=== PATIENT | male | born 1940 | race Caucasian/White ===

== ENCOUNTER 2021-01-26 00:39 | Inpatient (IN) | payer MEDICARE, OTHER, SELFPAY ==
[2021-01-26] VITALS (14 sets, daily range): BP systolic 119–144; BP diastolic 64–85; PULSE 79–101; RESP 18–24; TEMP 36.3–37.1; O2SAT 92–98; BMI 20.7
--- NOTE | 2021-01-26 00:52 | PCM.HP.STD ---
Documented by User: JASON Dominguez 01/26/21 01:14 HPI - General General Date of Admission: 01/26/21 Date of Service: 01/26/21 Chief Complaint: SOB, PE HPI Narrative CHARISMA RODRIGUEZ, is a 80 M who presents from [facility] with complaints of shortness of breath. Patient presented to the freestanding ER with complaints of shortness of breath and leg swelling left greater than right however the main campus did not have any beds available so patient was transferred to [facility]. Patient D-dimer from previous facility was 2420 and CTA results showed pulmonary arterial hypertension and COPD along with acute thromboembolic disease involving the right lower lobe lobar, left lower lobe lobar and segmental pulmonary arteries. There is also a small clot suspected in the right middle lobe pulmonary artery. Patient was tested for Covid and alkaline which came back negative CMP unremarkable, lactate 2.4. CBC noted to have elevated white blood cell count 11.81 as well as RBC 6.53 and hemoglobin 18.5 with hematocrit 57.5 and platelet 262. Patient currently reports that his left leg swelling and pain has decreased after the initiation of heparin. Patient continues to complain of shortness of breath and is currently on oxygen. [facility] Medical History (Updated 01/26/21 @ 01:04 by JASON Dominguez) COPD (chronic obstructive pulmonary disease) Home Medications albuterol sulfate 1 puff INHALATION Q4H PRN PRN 01/26/21 [History Last Taken Unknown] furosemide [Lasix] 20 mg PO DAILY 01/26/21 [History Last Taken Unknown] Allergy/AdvReac Type Severity Reaction Status Date / Time No Known Allergies Allergy Verified 01/26/21 01:01 Social History Smoking Status: Former smoker ROS Constitutional Constitutional: Denies anorexia, chills, fatigue, fever(s) or weakness Cardiovascular Cardiovascular: Reports edema; Denies chest pain or palpitations Respiratory/Chest Respiratory/Chest: Reports shortness of breath at rest and shortness of breath with exertion; Denies cough or hemoptysis Gastrointestinal Gastrointestinal: Denies abdominal pain, constipation, diarrhea, nausea or vomiting Genitourinary Genitourinary: Denies dysuria Musculoskeletal Musculoskeletal: Denies back pain, extremity pain, joint pain or joint stiffness Integumentary Integumentary: Denies dry skin Neurologic Neurologic: Denies abnormal gait, abnormal speech, confusion or dizziness Psychiatric Psychiatric: Denies anxiety or depression Endocrine Endocrinology: Denies change in body appearance Hematologic/Lymphatic Hematologic/Lymphatic: Denies easy bleeding or easy bruising Vital Signs Vital Signs Vital Signs: 01/26/21 00:20 Temperature 97.5 F L Temperature Source Oral Pulse Rate 90 Respiratory Rate 18 Blood Pressure 144/85 H Blood Pressure Mean 104 Blood Pressure Source Monitor Blood Pressure Position Semi-Fowlers Blood Pressure Location Right Arm Pulse Ox 95 Oxygen Delivery Method Nasal Cannula Oxygen Flow Rate (L/min) 2.5 Weight Weight: 132 lb 7.965 oz Body Mass Index (BMI) 20.7 Physical Exam Const alert, oriented x3 and no apparent distress General Appearance: cooperative HEENT normocephalic and head/scalp atraumatic Eyes conjunctivae normal and no scleral icterus Neck no lymphadenopathy, supple and no JVD General: trachea midline Resp normal respiratory effort and normal air movement Auscultation: wheezes left lower, right lower and anterior Cardio regular rate, regular rhythm, S1 normal heart sound, S2 normal heart sound and peripheral pulses 2+ throughout GI normal to inspection, nondistended, normoactive bowel sounds, soft to palpation and non-tender Extremity normal capillary refill and no clubbing, cyanosis or edema General Extremity: calf tenderness and edema bilateral (Left worse than right) lower extremity Details: moderate Skin General Skin Exam: no breakdown and turgor normal Lesions: no lesions Rashes: no rashes Neuro oriented x3, moves all extremities, no focal motor deficits and no sensory deficits noted Psych thought process normal, cooperative and affect normal Appearance: appropriate Results Lab / Micro Data Result Diagrams: 01/26/21 01:20 Assessment & Plan Assessment/Plan (1) Pulmonary embolism: QUALIFIERS: Acute cor pulmonale presence: without acute cor pulmonale Chronicity: acute Pulmonary embolism type: unspecified Qualified Code(s): I26.99 - Other pulmonary embolism without acute cor pulmonale PLAN: 1. Pulmonary embolism -Admit to PCU for cardiac monitoring -Heparin drip ordered per protocol, no bolus ordered due to patient being bolused at [facility] prior to arrival. Will obtain PTT and platelet count prior to re-initiation -Venous duplex of the bilateral lower extremities ordered for a.m. -Incentive spirometry encouraged a cancer can talk tonight -Echocardiogram ordered for a.m. -PT and OT to evaluate and treat -Consult pulmonary medicine -Vital signs per protocol -CBC and BMP in a.m. -Oxygen per protocol, currently on 2.5 L nasal cannula -Elevate lower extremities while in bed or in chair -Case management consulted for discharge planning, possible need for O2 on discharge 2. COPD -As needed albuterol nebulizer treatments ordered 3. CHF -Due to increased edema will order bilateral Murray wraps -Lasix 20 mg IV twice daily ordered -Strict intake and output along with daily weights ordered DVT prophylaxis-patient on heparin drip This patient was seen by JON DominguezC under the supervision of Dr. Dubois. Documented by User: Dr. Antwan Dubois MD 01/26/21 05:34 HPI - General General Date of Admission: 01/26/21 [facility] Medical History (Updated 01/26/21 @ 01:04 by Apple Vanegas NP-C) COPD (chronic obstructive pulmonary disease) Home Medications albuterol sulfate 1 puff INHALATION Q4H PRN PRN 01/26/21 [History Last Taken Unknown] furosemide [Lasix] 20 mg PO DAILY 01/26/21 [History Last Taken Unknown] Allergy/AdvReac Type Severity Reaction Status Date / Time No Known Allergies Allergy Verified 01/26/21 01:01 Social History Smoking Status: Former smoker Results Lab / Micro Data Result Diagrams: 01/26/21 01:20 Charges/Coding Addendum Addendum: Patient seen and evaluated independently by myself and agree with above assessment and plan
[2021-01-26 01:27] LABS: Platelet Count 239 K/mm3 (150-450)
[2021-01-26 01:39] LABS: Partial Thromboplast Time 126.3 Seconds (24.1-36.2)
[2021-01-26] MEDS: 0.9% Saline Lock 10 ML Syringe IV (03:19)
[2021-01-26] MEDS: HEPARIN/D5w 25,000 UNITS 25,000 UNITS/250 ML IV.SOLN. 5 UNITS IV (03:20)
[2021-01-26 05:04] LABS: Troponin-I HS 382.1 pg/mL (3.0-78.5)
--- NOTE | 2021-01-26 05:55 | ECHOD_ITS ---
Reason For Study: EMBOLI Procedure This was a 2D Doppler, Color Flow transthoracic echocardiogram. The study was technically difficult. Exam performed with PT sitting upright due to SOB. Exam performed portable in patient room. Left Ventricle Normal LV size. D shaped septum in systole and diastole. Left ventricular systolic function is normal. The estimated ejection fraction is 65 %. Diastolic function is indeterminate. No regional wall motion abnormalities noted. Right Ventricle Severely dilated right ventricle. A calcified moderator band is seen in the right ventricle. Moderate global right ventricular systolic dysfunction. Atria Normal left atrium. Normal right atrium. No doppler evidence for ASD. Mitral Valve There is no mitral annular calcification. Normal mitral valve. Trivial mitral valve insufficiency. Tricuspid Valve Normal tricuspid valve. Mild tricuspid valve insufficiency. Right ventricular systolic pressure estimated to be 50 mmHg. Aortic Valve Trisinus/trileaflet aortic valve. Mild focal aortic valve calcification. Trivial aortic valve insufficiency. Pulmonic Valve The pulmonic valve is not well visualized. Moderate (2+) pulmonic valve insufficiency. Great Vessels Normal sized aortic root. Pericardium/Pleural No pericardial effusion. MMode/2D Measurements & Calculations LVIDd: 3.9 cm IVSd: 1.1 cm Ao root diam: 3.4 cm LVIDs: 2.6 cm LVPWd: 1.0 cm RVDd: 4.9 cm FS: 33.8 % LAV(MOD-bp): 48.4 ml LA A4 area: 15.7 cm2 RA A4 area: 15.5 cm2 LAV(MOD-bp) Indexed: 28.5 ml/m2 LAV(MOD-sp2): 47.8 ml LAV(MOD-sp4): 47.8 ml Doppler Measurements & Calculations MV E max manuel: 59.0 cm/sec Lat Peak E' Manuel: 6.1 cm/sec Med Peak E' Manuel: 4.9 cm/sec MV A max manuel: 96.8 cm/sec E/E' lat: 9.6 E/E' med: 11.9 MV E/A: 0.61 Ao V2 max: 101.0 cm/sec LV V1 max: 70.3 cm/sec PA V2 max: 72.2 cm/sec Ao max P.1 mmHg LV V1 max P.0 mmHg TR max manuel: 338.6 cm/sec TR max P.2 mmHg ECHO/Echo Complete Interpretation Summary The study was technically difficult. Left ventricular systolic function is normal. The estimated ejection fraction is 65 %. D shaped septum in systole and diastole. Severely dilated right ventricle. Moderate global right ventricular systolic dysfunction. A calcified moderator band is seen in the right ventricle. Trivial mitral valve insufficiency. Mild tricuspid valve insufficiency. Mild focal aortic valve calcification. Trivial aortic valve insufficiency. Moderate (2+) pulmonic valve insufficiency. Right ventricular systolic pressure estimated to be 50 mmHg c/w pulmonary hyper tension. Diastolic function is indeterminate. Ordering Physician: Apple Vanegas Referring Physician: Charlotte Taveras Performed By: Kiesha Farooq, TATYANA, RVT
--- NOTE | 2021-01-26 05:55 | VDLE_ITS ---
Reason For Study: PE RIGHT LEFT GSV is normal. GSV is normal. CFV is compressible, spontaneous, phasic, CFV is compressible, spontaneous, phasic, competent and demonstrates normal competent, and demonstrates normal augmentation. augmentation. FV is compressible, spontaneous, phasic, FV is compressible, spontaneous, phasic, competent and demonstrates normal competent and demonstrates normal augmentation. augmentation. POP V is compressible, spontaneous, phasic, T/P Trunk is compressible. competent and demonstrates normal PTV is compressible. augmentation. LT PerV is compressible. T/P Trunk is compressible. POP V is partially compressible with PTV is compressible. decreased flow. Peroneal V is dilated and noncompressible. Gastroc V are dilated and noncompressible Procedure with extension into the POP V. This is a venous duplex using B-mode, color SSV is dilated and noncompressible. flow and spectral Doppler. Exam performed portable in patient room. The exam was diagnostic. A preliminary report was called and/or faxed to the pt's RN. VL/Venous Duplex US - [place] Extrem Interpretation Summary Acute deep venous thrombosis right peroneal vein Acute deep venous thrombosis left popliteal vein with visible thrombus. Acute deep venous thrombosis left gastrocnemius vein with extension into the po pliteal vein Superficial thrombophlebitis left small saphenous vein Patent and compressible bilateral great saphenous vein Ordering Physician: Apple Vanegas Performed By: Topher Winter RVT
--- NOTE | 2021-01-26 06:19 | EX.PCM.CONCC ---
Assessment & Plan Assessment/Plan (1) Pulmonary embolism: QUALIFIERS: Acute cor pulmonale presence: without acute cor pulmonale Chronicity: acute Pulmonary embolism type: unspecified Qualified Code(s): I26.99 - Other pulmonary embolism without acute cor pulmonale PLAN: RECOMMENDATIONS: 1. Continue heparin infusion for now with plans to transition to either Xarelto or Eliquis, depending on insurance coverage. 2. Wean supplemental oxygen to maintain saturations at or above 90%. 3. Echocardiogram is pending. 4. Perform walking oximetry study prior to consideration for discharge home. 5. Recommend outpatient pulmonary follow-up within 2 weeks of discharge. IMPRESSIONS: 1. Bilateral pulmonary emboli/submassive PE The patient presented to the hospital with progressive shortness of breath and was subsequently found to be positive for bilateral pulmonary emboli along with biochemical evidence of heart strain including elevated troponin and BNP, indicative of submassive PE. The patient was subsequently placed on a heparin infusion. Okay from my perspective to transition him to either Eliquis or Xarelto, depending on insurance coverage. Recommend continuing to wean supplemental oxygen to maintain saturations at or above 90%. Echocardiogram is currently pending. 2. Polycythemia The patient would benefit from outpatient secondary work-up for his polycythemia. As noted above, ensure adequacy of oxygenation with exertion prior to consideration for discharge home. Given the patient's smoking history, I would consider obtaining baseline PFTs along with an overnight oximetry study. 3. Questionable pulmonary hypertension/obstructive lung disease Complicates care, management, recovery and prognosis. Okay for now to continue as needed bronchodilator therapy. Recommend outpatient pulmonary follow-up within 2 weeks of discharge. This note was generated with [employer] dictation software. It may contain incorrect words, spelling, and punctuation that were not noted in checking the note before signing. HPI Consult Data Date of Consult: 01/26/21 HPI Narrative Reason for Consultation: Pulmonary embolism HPI Narrative: The patient is an 80-year-old male, with a history as outlined below, who presented as a transfer from [facility] emergency department, after he presented there on January 25 with complaints of shortness of breath. On presentation to the outside hospital, the patient was noted to be afebrile and hemodynamically stable. The patient's initial troponins were elevated along with a BNP of 709. Coronavirus testing was negative. CTA chest was obtained and revealed pulmonary emboli involving the bilateral lower lobes. The patient received IV Lasix and was placed on a heparin infusion. He was subsequently transferred to [facility] for further management. The patient denies any history of venous thromboembolic disease. He has not recently traveled and denies prolonged immobility. He has never been diagnosed with a hypercoagulable state. The patient does have a smoking history of approximately 50 pack years, having quit completely 20 years ago. He does utilize an albuterol rescue inhaler at his baseline periodically. He was not previously on supplemental oxygen at his baseline. [facility] Medical History (Updated 01/26/21 @ 01:04 by JASON Dominguez) COPD (chronic obstructive pulmonary disease) Home Medications albuterol sulfate 1 puff INHALATION Q4H PRN PRN 01/26/21 [History Last Taken Unknown] furosemide [Lasix] 20 mg PO DAILY 01/26/21 [History Last Taken Unknown] Allergy/AdvReac Type Severity Reaction Status Date / Time No Known Allergies Allergy Verified 01/26/21 01:01 Social History Smoking Status: Former smoker ROS Constitutional Constitutional: Denies chills, fatigue, fever(s) or headache(s) Eyes Eyes: Denies blurry vision or change in vision ENT HEENT: Denies dizziness, epistaxis or headache(s) Cardiovascular Cardiovascular: Reports dyspnea and edema; Denies chest pain or dizziness Respiratory/Chest Respiratory/Chest: Reports dyspnea and shortness of breath with exertion; Denies chest tightness or cough Gastrointestinal Gastrointestinal: Denies abdominal pain, diarrhea, nausea or vomiting Genitourinary Genitourinary: Denies difficulty urinating Musculoskeletal Musculoskeletal: Denies arthralgias, back pain or joint pain Integumentary Integumentary: Denies lesions, rash or skin ulcer Neurologic Neurologic: Denies abnormal gait, abnormal speech or confusion Psychiatric Psychiatric: Denies anxiety or depression Endocrine Endocrinology: Denies fatigue Hematologic/Lymphatic Hematologic/Lymphatic: Denies easy bleeding or easy bruising Physical Exam Const alert, oriented x3 and no apparent distress General Appearance: cooperative HEENT normocephalic, head/scalp atraumatic and moist oral mucous membranes Eyes PERRL, EOMs intact bilaterally and conjunctivae normal Neck supple General: trachea midline Resp normal respiratory effort Auscultation: Negative for rales, rhonchi or wheezes Cardio regular rate and regular rhythm GI normal to inspection, nondistended, normoactive bowel sounds Extremity no clubbing, cyanosis or edema Skin no rashes or lesions noted Neuro oriented x3, CN's II-XII intact bilaterally, moves all extremities and no focal motor deficits Psych cooperative and affect normal Lab / Micro Data Result Diagrams: 01/26/21 07:05 01/26/21 07:05 Labs: Laboratory Results - last 24 hr 01/26/21 01/26/21 01/26/21 01:20 01:20 01:20 Plt Count 239 APTT 126.3 H* Troponin I High Sens 380.0 H* 01/26/21 03:38 Plt Count APTT Troponin I High Sens 382.1 H* Charges/Coding Visit Charges Inpatient E&M: 36627 Init Hosp L3
[2021-01-26 07:11] LABS: Absolute Lymphocyte Count 1.17 X10^3/uL (0.83-4.51); Absolute Neutrophil Count 5.7 X10^3/uL (2.0-7.7); Basophil# 0.08 X10^3/uL; Eosinophil# 0.33 X10^3/uL; Hemoglobin 17.6 g/dL (13.0-16.5); Lymphocyte # 1.17 X10^3/ul (0.83-4.51); Lymphocyte % 14.1 % (19-41); Mean Corp Hgb Conc 31.2 g/dL (32-36); Mean Corpuscular Hgb 27.9 pg (27.0-32.0); Mean Corpuscular Volume 89.5 fL (80-94); Mean Platelet Vol. 10.4 fl (6.2-12.0); Monocyte# 0.99 X10^3/uL; NRBC Flagged by Analyzer 0 % (0-5); Neutrophil # 5.67 X10^3/uL (2.7-7.7); Neutrophil % 68.5 % (47-70); Platelet Count 231 K/mm3 (150-450); RBC Distribution Width CV 13.4 % (11.6-14.6); RBC Distribution Width SD 44.2 fl (35.1-43.9); White Blood Count 8.3 K/mm3 (4.4-11.0)
[2021-01-26 07:14] LABS: Hematocrit 56.4 % (40-54)
[2021-01-26 07:38] LABS: Anion Gap 5 (5-15); BUN 20 mg/dL (7-18); BUN/Creat Ratio 25.1 RATIO (10-20); Calcium,Total 8.2 mg/dL (8.5-10.1); Chloride 101 mmol/L (98-107); EST Glomerular Filtration Rate 99 mL/min (>60); Est Glom Filt Rate - Afr Amer 120 mL/min (>60); Estimated Creatinine Clearance 62.71 ml/min; Glucose 81 mg/dL (74-106); Potassium 4.4 mmol/L (3.5-5.1); Sodium Level 138 mmol/L (136-145)
[2021-01-26 08:13] LABS: BNP,B-Type NATRIURETIC PEPTIDE 266.6 pg/mL (0-100)
[2021-01-26] MEDS: Albuterol 2.5 MG/3 ML VIAL.NEB. INHALATION (09:23)
--- NOTE | 2021-01-26 10:20 | CASEMGMT ---
HUMBERTO CM Face to Face with patient for initial transition planning/care coordination assessment. RN CM introduced self and role at [facility]. Patient lying in bed, alert and oriented, and son at bedside. Patient willing to participate in assessment and is able to answer all questions appropriately. Care providers, pharmacy, and demographics verified. Patient wishes to discharge home, denies need for home health at this time. Patient states he has no further needs or concerns at this time. CM to follow for discharge planning needs that may arise. PCP: Nitin Specialists: none Preferred Pharmacy: [facility] [place] Insurance: [employer] Prescription Benefit: none Living Will/HPOA: none LNOK: , son Living Arrangements: Patient lives with in a 1 story home with 3 steps and railing to enter the home. Patient states he is independent at home. Transportation: self//son DME/HHC: Patient states he has cane and walker at home. Patient denies previous HHC. Patient provided with list of DME for preferences. Disposition Plan: Patient to discharge home with family support and follow-up plans in place. Andreia NERI, RN, CM
[2021-01-26] MEDS: Heparin Injection (Vial) 5,000 UNIT/ML VIAL IV (10:21)
--- NOTE | 2021-01-26 10:46 | PCM.HOSP.N ---
Documented by User: Miguel MCKEON 01/26/21 10:49 Hospitalist Note Patient is a 80-year-old male who presented to the ED at [facility] on 01/25/2021 with a chief complaint of shortness of breath and was admitted for pulmonary embolism of the right lower lobe, left lower lobe and pulmonary arteries. Patient currently denies chest pain, shortness of breath, cough, hemoptysis, sputum production. Patient does endorse lower extremity soreness however reports that this has improved since admission. Vital signs stable patient is afebrile, currently satting 95% on 4 L via nasal cannula. Heparin has been discontinued, and patient will be anticoagulated on Lovenox 60 mg SC twice daily. Patient seen by Miguel Jose PA-C, under the supervision of Dr. Mahoney.
[2021-01-26 11:04] LABS: International Normalized Ratio 1.1; Prothrombin Time (Protime)PT. 13.7 SECONDS (11.7-14.9)
[2021-01-26] MEDS: Enoxaparin 60 MG/0.6 ML Syringe SC (16:53)
[2021-01-27] VITALS (8 sets, daily range): BP systolic 116–139; BP diastolic 69–88; PULSE 88–102; RESP 18–20; TEMP 36.3–36.8; O2SAT 80–95
[2021-01-27] MEDS: Enoxaparin 60 MG/0.6 ML Syringe SC (05:33)
--- NOTE | 2021-01-27 06:32 | PCM.PN.INT ---
Assessment & Plan Assessment/Plan (1) Pulmonary embolism: QUALIFIERS: Acute cor pulmonale presence: without acute cor pulmonale Chronicity: acute Pulmonary embolism type: unspecified Qualified Code(s): I26.99 - Other pulmonary embolism without acute cor pulmonale PLAN: RECOMMENDATIONS: 1. Continue Lovenox bridge to Coumadin for long-term anticoagulation need. 2. Wean supplemental oxygen to maintain saturations at or above 90%. 3. Perform walking oximetry study prior to consideration for discharge home. 4. Recommend outpatient pulmonary follow-up within 2 weeks of discharge. IMPRESSIONS: 1. Bilateral pulmonary emboli/submassive PE The patient presented to the hospital with progressive shortness of breath and was subsequently found to be positive for bilateral pulmonary emboli along with biochemical evidence of heart strain including elevated troponin and BNP, indicative of submassive PE. The patient was subsequently placed on a heparin infusion. Due to cost, the patient was transitioned to Coumadin with a Lovenox bridge until INR is therapeutic. Recommend continuing to wean supplemental oxygen to maintain saturations at or above 90%. 2. Polycythemia The patient would benefit from outpatient secondary work-up for his polycythemia. As noted above, ensure adequacy of oxygenation with exertion prior to consideration for discharge home. Given the patient's smoking history, I would consider obtaining baseline PFTs along with an overnight oximetry study. 3. Questionable pulmonary hypertension/obstructive lung disease Complicates care, management, recovery and prognosis. Okay for now to continue as needed bronchodilator therapy. Recommend outpatient pulmonary follow-up within 2 weeks of discharge. This note was generated with [employer] dictation software. It may contain incorrect words, spelling, and punctuation that were not noted in checking the note before signing. Subjective Subjective The patient was seen and examined at the bedside this morning. Events from the last 24 hours have been reviewed. The patient is currently afebrile, hemodynamically stable and maintaining appropriate oxygen saturations on 2 L/min via nasal cannula. Due to cost related issues, the patient has elected to utilize Coumadin for long-term anticoagulation needs. He was therefore started on Lovenox yesterday. Objective Data Objective Data The patient's most recent lab work, culture data and imaging studies have all been personally reviewed. Vital Signs: Vital Signs Temp Pulse Resp BP Pulse Ox 97.4 F L 88 20 H 139/88 H 94 06/30/ 02:27 01/27/21 02:59 01/27/21 02:32 01/27/21 02:27 01/27/21 02:32 Oxygen Flow Rate (L/min) 2 Oxygen Delivery Method Nasal Cannula Weight: 139 lb 5.314 oz Body Mass Index (BMI) 20.7 Intake & Output: Intake and Output for Last 24 Hours 01/25/21 01/26/21 01/27/21 23:59 23:59 23:59 Intake Total 763.27 / 863.27 150 / 150 Balance 763.27 / 863.27 150 / 150 Lab / Micro Data Attestation: I reviewed the patient's lab results. Result Diagrams: 01/27/21 06:05 01/27/21 06:05 Labs: Laboratory Results - last 24 hr 01/26/21 01/26/21 01/26/21 07:05 07:05 07:05 WBC 8.3 RBC 6.30 H Hgb 17.6 H Hct 56.4 H MCV 89.5 MCH 27.9 MCHC 31.2 L RDW Std Deviation 44.2 H RDW Coeff of Alvaro 13.4 Plt Count 231 MPV 10.4 Immature Gran % (Auto) 0.400 Neut % (Auto) 68.5 Lymph % (Auto) 14.1 L [place] % (Auto) 12.0 H Eos % (Auto) 4.0 Baso % (Auto) 1.0 Absolute Neuts (auto) 5.7 Absolute Lymphs (auto) 1.17 Nucleated RBC % 0 PT INR APTT Sodium 138 Potassium 4.4 Chloride 101 Carbon Dioxide 32.0 Anion Gap 5 BUN 20 H Creatinine 0.80 Estim Creat Clear Calc 62.71 Est GFR (MDRD) Af Amer 120 Est GFR (MDRD) Non-Af 99 BUN/Creatinine Ratio 25.1 H Glucose 81 Calcium 8.2 L Troponin I High Sens 309.0 H* B-Natriuretic Peptide 01/26/21 01/26/21 01/26/21 07:05 09:20 09:20 WBC RBC Hgb Hct MCV MCH MCHC RDW Std Deviation RDW Coeff of Alvaro Plt Count MPV Immature Gran % (Auto) Neut % (Auto) Lymph % (Auto) [place] % (Auto) Eos % (Auto) Baso % (Auto) Absolute Neuts (auto) Absolute Lymphs (auto) Nucleated RBC % PT 13.7 INR 1.1 APTT 43.0 H Sodium Potassium Chloride Carbon Dioxide Anion Gap BUN Creatinine Estim Creat Clear Calc Est GFR (MDRD) Af Amer Est GFR (MDRD) Non-Af BUN/Creatinine Ratio Glucose Calcium Troponin I High Sens B-Natriuretic Peptide 266.6 H Physical Exam Const alert, oriented x3 and no apparent distress General Appearance: cooperative HEENT normocephalic, head/scalp atraumatic and moist oral mucous membranes Eyes PERRL, EOMs intact bilaterally and conjunctivae normal Neck supple General: trachea midline Resp normal respiratory effort Auscultation: Negative for rales, rhonchi or wheezes Cardio regular rate and regular rhythm GI normal to inspection, nondistended, normoactive bowel sounds Extremity no clubbing, cyanosis or edema Skin no rashes or lesions noted Neuro oriented x3, CN's II-XII intact bilaterally, moves all extremities and no focal motor deficits Psych cooperative and affect normal Charges/Coding Visit Charges Inpatient E&M: 03454 Subs Hosp L2
[2021-01-27 07:01] LABS: Absolute Lymphocyte Count 0.87 X10^3/uL (0.83-4.51); Absolute Neutrophil Count 6.4 X10^3/uL (2.0-7.7); Basophil# 0.08 X10^3/uL; Basophil% 0.9 % (0-1); Eosinophil# 0.21 X10^3/uL; Eosinophils% 2.5 % (0-5); Hemoglobin 17.5 g/dL (13.0-16.5); Lymphocyte # 0.87 X10^3/ul (0.83-4.51); Lymphocyte % 10.3 % (19-41); Mean Corpuscular Hgb 27.8 pg (27.0-32.0); Mean Corpuscular Volume 89.8 fL (80-94); Mean Platelet Vol. 11.6 fl (6.2-12.0); Monocyte# 0.89 X10^3/uL; Monocyte% 10.5 % (0-10); NRBC Flagged by Analyzer 0 % (0-5); Neutrophil # 6.36 X10^3/uL (2.7-7.7); Neutrophil % 75.4 % (47-70); Platelet Count 257 K/mm3 (150-450); RBC Distribution Width CV 13.3 % (11.6-14.6); Red Blood Count 6.29 M/mm3 (4.6-6.2); White Blood Count 8.4 K/mm3 (4.4-11.0)
[2021-01-27 07:04] LABS: Hematocrit 56.5 % (40-54)
[2021-01-27 07:27] LABS: Anion Gap 4 (5-15); BUN 17 mg/dL (7-18); BUN/Creat Ratio 23.6 RATIO (10-20); Calcium,Total 8.6 mg/dL (8.5-10.1); Chloride 100 mmol/L (98-107); Creatinine, Serum 0.72 mg/dL (0.70-1.30); EST Glomerular Filtration Rate 112 mL/min (>60); Est Glom Filt Rate - Afr Amer 135 mL/min (>60); Estimated Creatinine Clearance 52.67 ml/min; Glucose 73 mg/dL (74-106); Potassium 4.4 mmol/L (3.5-5.1); Sodium Level 139 mmol/L (136-145)
--- NOTE | 2021-01-27 11:09 | CASEMGMT ---
Pt qualifies for 2L at rest and 4L w/ exertion and this RN CM to room to discuss DME preference. Pt already provided list yesterday by Catrina PAUL CM. Pt/ state they would like [employer] and pt states would like the mini tanks as he does not want to 'lug around a big tank.' Pt also to be sent home on Lovenox bridge to coumadin and pt does not have Rx coverage. Garcia aware and [facility] Rx assist to be utilized. Pt/ voice no further questions/concerns/needs. Jalen PAUL CM
--- NOTE | 2021-01-27 11:13 | PCM.DC ---
Discharge Instructions Follow Up Care Test Results: Test results from this visit will be discussed in further detail at your follow-up appointment, if applicable. Discharge Plan Admission Admit Date/Time: 01/26/21 00:39 Attending Provider: Meet Mahoney Primary Care Provider: Charlotte Taveras Consulting Providers: Huey Solis Instructions Additional Instructions / Restrictions: Obtain PT/INR at Dr. Taveras's office on Monday01/29/2021 @ earliest possible appointment. Discharge Orders/Prescriptions Prescriptions: New enoxaparin [Lovenox] 60 mg/0.6 mL syringe 60 mg subcut Q12H 14 Days Qty: 16.8 RF: 0 warfarin 2 mg tablet 2 mg PO DAILY Qty: 75 RF: 0 Continued furosemide [Lasix] 20 mg tablet 20 mg PO DAILY RF: 0 albuterol sulfate 90 mcg/actuation HFA aerosol inhaler 1 puff INHALATION Q4H PRN PRN (Reason: COPD) RF: 0 Referrals / Follow Up: Charlotte Taveras MD [Primary Care Provider] - See Referral Note (Obtain PT/INR at Dr. Taveras's office on Monday01/29/2021 @ earliest possible appointment. ) Disposition Disposition (needs filled in before D/C Order can be placed): Home, Self Care
--- NOTE | 2021-01-27 12:11 | PHA.DC.MC ---
Pharmacy Service has performed discharge medication reconciliation and counseling for this patient. 1. ENOXAPARIN 60MG SC BID UNTIL INSTRUCTED TO STOP BY PCP 2. WARFARIN 5MG PO DAILY The patient's discharge medication list was reviewed for discrepancies and discrepancies were resolved. Patient to follow up with PCP on Monday for INR check. Home Medications albuterol sulfate 1 puff INHALATION Q4H PRN PRN 01/26/21 furosemide [Lasix] 20 mg PO DAILY 01/26/21 enoxaparin [Lovenox] 60 mg SUBCUT Q12H 14 Days #16.8 ml 01/27/21 warfarin 2 mg PO DAILY #75 tab 01/27/21 The patient was counseled on the following discharge medications and changes in medications for homegoing were reviewed. The Reason for Use, instructions for use, and potential side effects were reviewed for all new medications. The patient's questions regarding all of their medications were answered. The patient was able to verbally demonstrate an understanding of their discharge medications.
--- NOTE | 2021-01-27 13:32 | PCM.DC.SUM ---
Documented by User: Miguel MCKEON 01/27/21 13:48 Providers Date of Admission: 01/26/21 Primary Care Physician: Dr. Charlotte Taveras MD Consultations 01/26/21 01:09 Consult: [employer] / Pulmonary Medicine Routine Consulting Provider: Huey Solsi Reason for Consult: Pulmonary embolism EMERGENT Consult: No MD Notified: Yes Date Notified: 01/26/21 Time Notified: 06:53 Method of Notification: Text Reason For Visit: PE Diagnosis Discharge Diagnosis (1) Pulmonary embolism: Status: Acute Code(s): I26.99 - Other pulmonary embolism without acute cor pulmonale Qualifiers: Acute cor pulmonale presence: without acute cor pulmonale Chronicity: acute Pulmonary embolism type: unspecified Qualified Code(s): I26.99 - Other pulmonary embolism without acute cor pulmonale Medications at Discharge Home Medications albuterol sulfate 1 puff INHALATION Q4H PRN PRN 01/26/21 furosemide [Lasix] 20 mg PO DAILY 01/26/21 enoxaparin [Lovenox] 60 mg SUBCUT Q12H 14 Days #16.8 ml 01/27/21 warfarin 2 mg PO DAILY #75 tab 01/27/21 Hospital Course Summary of Care Provided Minutes Spent on Discharge: 35 Hospital Course: 1) Acute hypoxia secondary to DVT/PE Patient was admitted for multiple DVT/PEs on 01/26/2021. Confimred by CT-A and LE venous doppler. Vital signs stable, patient is afebrile, currently satting 94% on 2 L. On ambulatory pulse ox patient dropped down to 88%. Did qualify for home oxygen, and advised to use until appropriate determination on length of use can be determined by his PCP. plan; initiate warfarin 5 mg p.o. daily, initiate Lovenox 60 mg SC twice daily until follow-up with PCP, obtain PT/INR at Dr. Carter office for PE follow up, patient placed on home oxygen. 2) COPD Home oxygen as above, continue albuterol. 3) HTN Continue Lasix. Patient seen by Miguel Jose PA-C, under the supervision of Dr Mahoney. Physical Exam Narrative Patient is an 80-year-old male who is resting comfortably in bed, alert and orient x3. Patient denies chest pain, palpitations, shortness of breath, hemoptysis, sputum production, fever, chills, N/V/D. Const alert, oriented x3 and no apparent distress HEENT normocephalic, head/scalp atraumatic and hearing grossly normal bilaterally Eyes EOMs intact bilaterally and conjunctivae normal Neck no lymphadenopathy, supple and no JVD Resp normal respiratory effort, normal air movement and no use of accessory muscles Resp Narrative: Currently satting 95% on 2 L via nasal cannula. Effort and Inspection: able to speak in complete sentences Cardio regular rate, regular rhythm, no murmurs and no JVD GI normal to inspection, nondistended, normoactive bowel sounds, soft to palpation and non-tender Extremity normal to inspection, full ROM and no clubbing, cyanosis or edema Extremity Narrative: Patient denies lower extremity swelling or pain, however did note soreness of the calves. Skin no rashes or lesions noted, no wounds and skin turgor normal Neuro CN's II-XII intact bilaterally Psych affect normal Weight / BMI Weight Weight: 139 lb 5.314 oz Body Mass Index (BMI) 20.7 ABG / Lab / Microbiology Data Result Diagrams: 01/27/21 06:05 01/27/21 06:05 Laboratory: Laboratory Results - last 24 hr 01/27/21 01/27/21 06:05 06:05 WBC 8.4 RBC 6.29 H Hgb 17.5 H Hct 56.5 H MCV 89.8 MCH 27.8 MCHC 31.0 L RDW Std Deviation 44.0 H RDW Coeff of Alvaro 13.3 Plt Count 257 MPV 11.6 Immature Gran % (Auto) 0.400 Neut % (Auto) 75.4 H Lymph % (Auto) 10.3 L [place] % (Auto) 10.5 H Eos % (Auto) 2.5 Baso % (Auto) 0.9 Absolute Neuts (auto) 6.4 Absolute Lymphs (auto) 0.87 Nucleated RBC % 0 Sodium 139 Potassium 4.4 Chloride 100 Carbon Dioxide 35.0 H Anion Gap 4 L BUN 17 Creatinine 0.72 Estim Creat Clear Calc 52.67 Est GFR (MDRD) Af Amer 135 Est GFR (MDRD) Non-Af 112 BUN/Creatinine Ratio 23.6 H Glucose 73 L Calcium 8.6 Meaningful Use Info Meaningful Use Diagnoses (Choose all that apply): VTE VTE Anticoag overlap given w/in hospital stay or rx'd at dc?: Yes Pt receive overlap for 5 days?: Yes Discharge Plan Admission Admit Date/Time: 01/26/21 00:39 Attending Provider: Meet Mahoney Primary Care Provider: Charlotte Taveras Consulting Providers: Huey Solis Instructions Additional Instructions / Restrictions: Patient Problems: Altered Health Status related to Hospitalization Patient Goals: *Optimal Level of Health *Keep Appointments *Medication Compliance *Remain SafeObtain PT/INR at Dr. Taveras's office on Monday01/29/2021 @ earliest possible appointment. Discharge Orders/Prescriptions Prescriptions: New enoxaparin [Lovenox] 60 mg/0.6 mL syringe 60 mg subcut Q12H 14 Days Qty: 16.8 RF: 0 warfarin 2 mg tablet 2 mg PO DAILY Qty: 75 RF: 0 Continued furosemide [Lasix] 20 mg tablet 20 mg PO DAILY RF: 0 albuterol sulfate 90 mcg/actuation HFA aerosol inhaler 1 puff INHALATION Q4H PRN PRN (Reason: COPD) RF: 0 Referrals / Follow Up: Charlotte Taveras MD [Primary Care Provider] - See Referral Note (Obtain PT/INR at Dr. Taveras's office on Monday01/29/2021 @ earliest possible appointment. ) Disposition Disposition (needs filled in before D/C Order can be placed): Home, Self Care Documented by User: Dr. Meet Mahoney DO 01/27/21 19:45 Providers Date of Admission: 01/26/21 Reason For Visit: PE Medications at Discharge Home Medications albuterol sulfate 1 puff INHALATION Q4H PRN PRN 01/26/21 furosemide [Lasix] 20 mg PO DAILY 01/26/21 enoxaparin [Lovenox] 60 mg SUBCUT Q12H 14 Days #16.8 ml 01/27/21 warfarin 2 mg PO DAILY #75 tab 01/27/21 ABG / Lab / Microbiology Data Result Diagrams: 01/27/21 06:05 01/27/21 06:05 Discharge Plan Admission Admit Date/Time: 01/26/21 00:39 Attending Provider: Meet Mahoney Primary Care Provider: Charlotte Taveras Consulting Providers: Huey Solis Instructions Additional Instructions / Restrictions: Patient Problems: Altered Health Status related to Hospitalization Patient Goals: *Optimal Level of Health *Keep Appointments *Medication Compliance *Remain SafeObtain PT/INR at Dr. Taveras's office on Monday01/29/2021 @ earliest possible appointment. Discharge Orders/Prescriptions Prescriptions: New enoxaparin [Lovenox] 60 mg/0.6 mL syringe 60 mg subcut Q12H 14 Days Qty: 16.8 RF: 0 warfarin 2 mg tablet 2 mg PO DAILY Qty: 75 RF: 0 Continued furosemide [Lasix] 20 mg tablet 20 mg PO DAILY RF: 0 albuterol sulfate 90 mcg/actuation HFA aerosol inhaler 1 puff INHALATION Q4H PRN PRN (Reason: COPD) RF: 0 Referrals / Follow Up: Charlotte Taveras MD [Primary Care Provider] - See Referral Note (Obtain PT/INR at Dr. Taveras's office on Monday01/29/2021 @ earliest possible appointment. ) Disposition Disposition (needs filled in before D/C Order can be placed): Home, Self Care Charges/Coding Addendum Addendum: Patient was seen and examined today independently of Miguel Jose, he requires a prescription for outpatient oxygen, he requires 4 L on ambulation and 2 L at rest. I spent some time talking with his and the patient concerning his diagnosis and treatment. On examination he appeared in good health and spirits. Vital signs as documented. Skin warm and dry and without overt rashes. Neck without JVD, neck was supple, trachea midline, thyroid was normal. Lungs clear bilaterally, normal air movement was noted. Heart exam notable for regular rhythm, normal sounds and absence of murmurs, rubs or gallops. Abdomen unremarkable and without evidence of organomegaly, masses, or abdominal aortic enlargement. Bowel sounds are present, abdomen is not distended. Extremities nonedematous, no cyanosis was noted, no clubbing was noted. Neuro: Cranial nerves II through XII are grossly intact, no focal motor deficits were noted, sensation to light touch and pinprick intact, motor exam 5/5 throughout. Psych: Patient is alert and oriented x3, he does not appear anxious or depressed, he does not appear agitated. Patient appears stable for discharge at this time, I discussed the case briefly with pulmonary medicine also. I have reviewed Miguel Jose's discharge summary including his medical assessment and plan of care and endorse it. Visit Charges Inpatient E&M: [id number] Disch Hosp
== END 2021-01-27 13:16 | disposition home or self-care (01) | DRG 176 ==
PROVIDERS: Internal Medicine Critical Care Medicine; Nurse Practitioner Family; Physician Assistant; Admitting Provider Family Medicine; PCP Family Medicine; Visit Provider Internal Medicine
DX: I26.99 Other pulmonary embolism without acute cor pulmonale (principal); I10 Essential (primary) hypertension; R09.02 Hypoxemia; I27.21 Secondary pulmonary arterial hypertension; D75.1 Secondary polycythemia; J44.9 Chronic obstructive pulmonary disease, unspecified; Z79.01 Long term (current) use of anticoagulants; Z79.899 Other long term (current) drug therapy; Z87.891 Personal history of nicotine dependence
CPT/HCPCS: 36415; 80048; 83880; 84484; 85025; 85049; 85610; 85730; 93306; 93970; 94640; 97110; 97162; 97166; 97535; 99251; A4216; G0463; J1940